=== PATIENT | female | born 2000 | race African-American/Black ===

== ENCOUNTER 2021-01-11 08:00 | Inpatient (IN) | payer OTHER ==
[~2021-01-11 08:00] MED LIST: BUTORPHANOL TARTRATE 2 MG/ML VIAL IVPB ONE; PROMETHAZINE HCL 25 MG/1 ML VIAL IVPB ONE
[2021-01-11] MEDS ORDERED: AMPICILLIN - 2 GM in SODIUM CHLORIDE 100 ML IVPB ONE (08:30)
[2021-01-11] MEDS: DEXTROSE 5%-LACTATED RINGERS 1,000 ML IV SCH (08:30)
[2021-01-11] MEDS ORDERED: PROMETHAZINE HCL 25 MG/1 ML VIAL ONE (08:54)
[2021-01-11] MEDS ORDERED: BUTORPHANOL TARTRATE 2 MG/ML VIAL ONE (08:54)
[2021-01-11 09:34] VITALS: BMI 30.2
[2021-01-11 09:54] LABS: BASO % 1.1 % (0-2.0); EOS % 0.3 % (0-4.5); HEMATOCRIT 28.4 % (32.4-45.2); HEMOGLOBIN 9.5 GM/dL (10.7-15.3); LYMPH % 10.5 % (8-40); MCH 22.1 pg (25.7-33.7); MCHC 33.7 g/dl (32.0-36.0); MEAN CELL VOLUME 65.7 fl (80-96); MEAN PLT VOLUME 7.4 fl (7.5-11.1); MONO % 7.2 % (3.8-10.2); NEUT % 80.9 % (42.8-82.8); PLATELET COUNT 279 K/MM3 (134-434); RBC 4.31 M/mm3 (3.60-5.2); RDW 18.4 % (11.6-15.6); WHITE BLOOD COUNT 14.3 K/mm3 (4.0-10.0)
[2021-01-11 10:01] LABS: INR 0.98 (0.83-1.09); PROTHROMBIN TIME (PATIENT) 11.9 SEC (9.7-13.0)
[2021-01-11 10:04] LABS: ACTIVATED PTT 28.4 SECONDS (25.2-36.5)
[2021-01-11 10:38] LABS: POTASSIUM 3.8 mmol/L (3.5-5.1)
[2021-01-11 10:40] LABS: CALCIUM 8.9 mg/dL (8.5-10.1)
[2021-01-11 10:41] LABS: BLOOD UREA NITROGEN 9.8 mg/dL (7-18)
[2021-01-11 12:23] LABS: HIV INTERPRETATION NEGATIVE (NEGATIVE)
[2021-01-11] MEDS ORDERED: AMPICILLIN SODIUM 1 GM VIAL ONE (13:06)
[2021-01-11] MEDS: AMPICILLIN - 1 GM in SODIUM CHLORIDE 100 ML IVPB SCH ×2 (13:07→16:47)
[2021-01-11] MEDS ORDERED: PCA PUMP NR ONE (13:22)
[2021-01-11] MEDS ORDERED: BUPIVACAINE HCL/PF 0.25% (2.5MG/ML) 10 ML VIAL ONE (13:36)
[2021-01-11] MEDS: FENTANYL/BUPIVACAINE/NS/PF - PCEA - 50 ML DISP.SYRIN EP SCH (14:00)
[2021-01-11] MEDS ORDERED: FENTANYL/BUPIVACAINE/NS/PF - PCEA - 50 ML DISP.SYRIN EP ONE (14:03)
[2021-01-11] MEDS ORDERED: OXYTOCIN 30 UNITS in 0.9% NS 30 UNIT/500 ML INFUS.BAG IVPB ONE (14:03)
[2021-01-11] MEDS ORDERED: OXYTOCIN 30 UNITS in 0.9% NS 30 UNIT/500 ML INFUS.BAG IVPB SCH (14:30)
[2021-01-11] MEDS: ELECTROLYTE-148 SOLN 1,000 ML IV SCH (14:30)
[2021-01-11] MEDS ORDERED: NALOXONE HCL 0.4 MG/ML VIAL IVPUSH PRN (14:32)
[2021-01-11] MEDS ORDERED: ELECTROLYTE-148 SOLN 500 ML IV ONE (15:34)
[2021-01-11] MEDS ORDERED: CITRIC ACID/SODIUM CITRATE 30 ML UNIT-DOSE CUP PO ONE (15:34)
[2021-01-11] MEDS ORDERED: OXYTOCIN 20 UNITS in 0.9% NS 20 UNIT/1,000 ML INFUS.BAG IV ONE (16:11)
[2021-01-11] MEDS ORDERED: LIDO 2%/EPI 1:200000 PRESRVFRE (20 ML SDVIAL) ONE (16:12)
[2021-01-11] MEDS ORDERED: ceFAZolin SODIUM 1 GM VIAL ONE (16:24)
[2021-01-11] MEDS ORDERED: PHENYLEPHRINE HCL 10 MG/1 ML SINGLE DOSE VIAL ONE (16:27)
[2021-01-11] MEDS ORDERED: ONDANSETRON 4 MG/2 ML VIAL ONE (16:43)
[2021-01-11] MEDS ORDERED: KETOROLAC TROMETHAMINE 30 MG/1 ML VIAL ONE (16:43)
[2021-01-11] MEDS ORDERED: DEXAMETHASONE SOD PHOSPHATE 4 MG/1 ML VIAL ONE (16:43)
[2021-01-11] MEDS ORDERED: ONDANSETRON 4 MG/2 ML VIAL IVPUSH PRN (16:57)
[2021-01-11] MEDS: OXYTOCIN 20 UNITS in 0.9% NS 20 UNIT/1,000 ML INFUS.BAG IV SCH (17:15)
[2021-01-11] MEDS ORDERED: METHYLERGONOVINE MALEATE 0.2 MG/1 ML AMP IM PRN (17:25)
[2021-01-11] MEDS ORDERED: SENNOSIDES/DOCUSATE COMBO (SENNA PLUS) TABLET (UD) PO PRN (17:25)
[2021-01-11] MEDS ORDERED: oxyCODONE HCL 5 MG TABLET PO PRN ×2 (17:25)
[2021-01-11] MEDS ORDERED: IBUPROFEN 800 MG/8 ML IJ IVPB PRN (17:25)
[2021-01-12 07:18] LABS: BASO % 0.1 % (0-2.0); HEMOGLOBIN 7.8 GM/dL (10.7-15.3); LYMPH % 10.7 % (8-40); MCH 22.2 pg (25.7-33.7); MCHC 33.7 g/dl (32.0-36.0); MEAN CELL VOLUME 65.8 fl (80-96); MEAN PLT VOLUME 7.8 fl (7.5-11.1); MONO % 11.9 % (3.8-10.2); NEUT % 77.3 % (42.8-82.8); PLATELET COUNT 255 K/MM3 (134-434); RDW 18.4 % (11.6-15.6); WHITE BLOOD COUNT 21.1 K/mm3 (4.0-10.0)
[2021-01-12 10:24] LABS: ANISOCYTOSIS 1+; MACROCYTOSIS 0; PLATELET ESTIMATE NORMAL
[2021-01-12] MEDS: PRENATAL VITAMINS W/ FOLIC ACID TABLET (FP) PO SCH (11:20)
[2021-01-12] MEDS: IBUPROFEN 600 MG TABLET (FP) PO PRN ×2 (11:22→21:04)
[2021-01-12] MEDS: ACETAMINOPHEN 325 MG TABLET (FP) PO PRN ×2 (11:23→21:02)
[2021-01-12] MEDS ORDERED: BISACODYL 10 MG SUPP.RECT RC PRN (17:25)
[2021-01-12] MEDS: DEXTROSE 5%-LACTATED RINGERS 1,000 ML IV SCH (19:02)
[2021-01-12] MEDS: FENTANYL/BUPIVACAINE/NS/PF - PCEA - 50 ML DISP.SYRIN EP SCH (19:02)
[2021-01-12] MEDS: ELECTROLYTE-148 SOLN 1,000 ML IV SCH (19:03)
[2021-01-12] MEDS: OXYTOCIN 20 UNITS in 0.9% NS 20 UNIT/1,000 ML INFUS.BAG IV SCH (19:03)
[2021-01-12] MEDS: FERROUS SO4 325 MG TABLET (FP) PO SCH (21:04)
[2021-01-12] MEDS: SIMETHICONE 80 MG TAB.CHEW (FP) PO PRN (21:05)
[2021-01-13] MEDS: ACETAMINOPHEN 325 MG TABLET (FP) PO PRN ×2 (06:17→17:48)
[2021-01-13] MEDS: SIMETHICONE 80 MG TAB.CHEW (FP) PO PRN ×3 (06:18→17:47)
[2021-01-13] MEDS: IBUPROFEN 600 MG TABLET (FP) PO PRN ×2 (06:19→17:47)
[2021-01-13] MEDS: PRENATAL VITAMINS W/ FOLIC ACID TABLET (FP) PO SCH (10:07)
[2021-01-13] MEDS: FERROUS SO4 325 MG TABLET (FP) PO SCH ×2 (10:07→22:08)
[2021-01-14] MEDS: PRENATAL VITAMINS W/ FOLIC ACID TABLET (FP) PO SCH (09:08)
[2021-01-14] MEDS: FERROUS SO4 325 MG TABLET (FP) PO SCH (09:08)
[2021-01-14 10:20] VITALS: BP 114/70; PULSE 95; TEMP 98.9
== END 2021-01-14 14:17 | disposition home or self-care (01) | DRG 540 ==
LOC: JLDR 08:00 → J3W 20:00
PROVIDERS: ADMIT Obstetrics & Gynecology; ATTEND Obstetrics & Gynecology
PROC: 10D00Z1 Extraction of Products of Conception, Low, Open Approach (ICD-10-PCS; principal; 2021-01-11)
DX: O75.89 Other specified complications of labor and delivery (principal); O62.0 Primary inadequate contractions; O77.0 Labor and delivery complicated by meconium in amniotic fluid; O69.1XX0 Labor and delivery complicated by cord around neck, with compression, not applicable or unspecified; O63.9 Long labor, unspecified; Z37.0 Single live birth; Z3A.40 40 weeks gestation of pregnancy
CPT/HCPCS: 36415; 80048; 85025; 85610; 85730; 86780; 86850; 86900; 86901; 87389; 88307-TC; C9803; U0003